=== PATIENT | female | born 1995 ===

== ENCOUNTER 2022-05-01 05:41 | Inpatient (IN) | payer OTHER ==
[~2022-05-01] VITALS: Ht 160 cm; Wt 68.9 kg
[2022-05-01] MEDS ORDERED: PRENATAL TABLE1 EAC1 PO (06:13)
== END 2022-05-03 13:50 | disposition home or self-care (01) | DRG 807 ==
LOC: LDR 05:41 → OB/GYN 13:52
PROVIDERS: ADMIT Obstetrics & Gynecology; ATTEND Obstetrics & Gynecology
PROC: 10E0XZZ Delivery of Products of Conception, External Approach (ICD-10-PCS; principal; 2022-05-01)
PROC: 0UQG7ZZ Repair Vagina, Via Natural or Artificial Opening (ICD-10-PCS; 2022-05-01)
PROC: 4A1HXCZ Monitoring of Products of Conception, Cardiac Rate, External Approach (ICD-10-PCS; 2022-05-01)
DX: O71.4 Obstetric high vaginal laceration alone (principal); Z37.0 Single live birth; Z3A.38 38 weeks gestation of pregnancy; Z20.822 Contact with and (suspected) exposure to COVID-19